=== PATIENT | female | born 1955 | race Caucasian/White ===

== ENCOUNTER 2017-09-19 22:19 | Emergency (ER) | payer OTHER ==
[~2017-09-19] VITALS: Ht 154.9 cm; Wt 56.0 kg
[~2017-09-19 22:19] MED LIST: ASTN; BIOT1CAP3 PO; DEXT10CA PO; ESTR0.05 TOP; IPRA0.037 NAE; LEVO75TA PO; LIDO1OIN4 EX; MORP15TA PO; POLY1POW2 PO; PTDOPS OPB; SODI500S PO; TEMA30CA4 PO; [UNRECOGNIZED DRUG - CODE] EXT; [UNRECOGNIZED DRUG - CODE] PO
[2017-09-19 22:21] VITALS: TEMP 36.7; Ht 154.9 cm; Wt 56.0 kg
[2017-09-19 23:04] VITALS: O2SAT 97
--- NOTE | 2017-09-19 23:05 | DIAGNOSTIC IMAGING REPORT ---
CHEST ONE VIEW PORTABLE CLINICAL HISTORY: 62 years-old Female presenting with CHEST PAIN. TECHNIQUE: Portable upright AP view of the chest was obtained. COMPARISON: 03/23/2012. FINDINGS: Atherosclerosis of the aortic arch. Cardiac silhouette normal in size. No focal opacity. No large effusion or pneumothorax. Osseous structures normal. Upper abdomen normal. IMPRESSION: 1. No acute cardiopulmonary disease. Electronically signed by: Tomasz Bridges M.D. 09/19/2017 11:04 PM Dictated Date/Time: 09/19/2017 11:03 PM
[2017-09-19 23:41] LABS: BASO % 0.2 %; BASO ABS # 0.01 K/uL (0-0.2); EOS % 0.8 %; EOS ABS # 0.04 K/uL (0-0.5); HEMATOCRIT 44.6 % (37-47); HEMOGLOBIN 15.4 g/dL (12.0-16.0); IG# 0.01 K/uL (0.00-0.02); LYMPH ABS # 1.27 K/uL (1.2-3.4); MEAN CELL VOLUME 86.3 fL (80-100); MEAN CORPUSCULAR HEMOGLOBIN 29.8 pg (25-34); MEAN CORPUSCULAR HGB CONC 34.5 g/dl (32-36); MEAN PLATELET VOLUME 10.5 fL (7.4-10.4); MONO % 9.2 %; MONO ABS # 0.47 K/uL (0.11-0.59); NEUT % 64.6 %; NEUT ABS # 3.29 K/uL (1.4-6.5); PLATELET COUNT 197 K/uL (130-400); RED CELL DISTRIBUTION WIDTH CV 12.7 % (11.5-14.5); RED CELL DISTRIBUTION WIDTH SD 40.5 fL (36.4-46.3); WHITE BLOOD COUNT 5.09 K/uL (4.8-10.8)
[2017-09-19 23:59] LABS: ALBUMIN 3.7 gm/dl (3.4-5.0); ALT/SGPT 28 U/L (12-78); AST/SGOT 19 U/L (15-37); BLOOD UREA NITROGEN 22 mg/dl (7-18); CALCIUM 8.4 mg/dl (8.5-10.1); CARBON DIOXIDE 32 mmol/L (21-32); CREATININE 0.97 mg/dl (0.60-1.20); GLUCOSE 91 mg/dl (70-99); POTASSIUM 4.1 mmol/L (3.5-5.1); SODIUM 138 mmol/L (136-145)
[2017-09-20 00:04] LABS: ALKALINE PHOSPHATASE 93 U/L (45-117); TOTAL PROTEIN 8.3 gm/dl (6.4-8.2)
[2017-09-20] MEDS ORDERED: ESTR0.05 TOP (02:43)
--- NOTE | 2017-09-20 02:53 | EMERGENCY ROOM VISIT NOTE ---
History First contact with patient: 22:25 Chief Complaint: ARM PAIN Stated Complaint: LEFT ARM/SHOULDER/BACK P,NAUSEA,SWEATS History of Present Illness The patient is a 62 year old female who presents to the Emergency Room with complaints of nausea, diaphoresis, left shoulder neck and arm pain for the past 2 hours that started while talking on the phone to her son. Symptoms started at 8 PM. She describes the pain as discomfort, ranging in severity 5 out of 10 from the left shoulder to the left elbow region. Nothing makes it better or worse. Patient took a full aspirin and felt slightly better. There was no injury. Patient is not lifting anything heavy. No prior heart attack. No recent stress test or echo. She seen Dr. Stein in the past but this is greater than 4 years ago. Patient denies exertional chest pain, jaw pain, dyspnea, abdominal pain, leg pain or swelling, recent travel, tobacco use. Her father of a heart attack at age 79. Patient denies blood pressure or diabetes. No drug use. Review of Systems An 10 system review of systems was completed with positives and pertinent negatives listed in the HPI. Past Medical/Surgical History Cholecystectomy, hyperlipidemia, hysterectomy, Lyme disease, stroke without deficits, MGUS, chronic kidney disease stage III, narcolepsy, osteoporosis, back pain, heart failure Social History Smoking Status: Never Smoker Smokeless Tobacco Use: No Alcohol Use: none Drug Use: none Marital Status: Occupation Status: retired Current/Historical Medications Scheduled Biotin (Biotin), 3 CAP PO QAM Dextroamphetamine Sulfate (Dexedrine), 10 MG PO TID Estradiol (Vivelle-Dot), 1 PATCH TOP 2XWK Levothyroxine Sodium (Synthroid), 75 MCG PO QAM Methamphetamine Hcl (Desoxyn), 15 MG PO TID Morphine Sulfate (Morphine Sulfate Ir), 1 TAB PO BID Sodium Oxybate (Xyrem), 9 GM PO HS Physical Exam Vital Signs Date Time Temp Pulse Resp B/P (MAP) Pulse Ox O2 Delivery O2 Flow Rate FiO2 09/20/17 01:00 76 20 114/73 97 Room Air 09/20/17 00:45 72 12 09/20/17 00:15 78 19 09/19/17 23:45 79 14 09/19/17 23:22 77 09/19/17 23:15 80 23 100 Room Air 09/19/17 23:04 97 Room Air 09/19/17 23:04 97 Room Air 09/19/17 22:51 122/70 09/19/17 22:21 36.7 18 141/83 Room Air Physical Exam VITALS: Vitals are noted on the nurse's note and reviewed by myself. Vital signs stable. GENERAL: Pleasant female, in no acute distress, nondiaphoretic, well-developed well-nourished. SKIN: The skin was without rashes, erythema, edema, or bruising. There is no tenting of the skin. Capillary reflex less than 2 seconds. HEAD: Normocephalic atraumatic. EARS: External auditory canals clear, tympanic membranes pearly moe without erythema or effusion bilaterally. EYES: Pupils equal round and reactive to light and accommodation. Conjunctivae without injection, sclerae without icterus. Extraocular movements intact. NOSE: Patent, turbinates without inflammation or discharge. MOUTH: Mucous membranes moist. Pharynx without erythema or exudate. Uvula midline. Airway patent. Tongue does not deviate. NECK: Supple without nuchal rigidity. No lymphadenopathy. No thyromegaly. Cervical spine is nontender. No JVD. HEART: Regular rate and rhythm without murmurs gallops or rubs. LUNGS: Clear to auscultation bilaterally without wheezes, rales or rhonchi. No retractions or accessory muscle use. ABDOMEN: Positive bowel sounds x 4. Normal tympanic percussion. Soft, nontender, without masses or organomegaly. Sawyer sign negative. No guarding or rebound tenderness. No CVA tenderness MUSCULOSKELETAL: No muscle atrophy, erythema, or edema noted. Bilateral shoulders nontender to palpation with full range of motion unable to reproduce symptoms. No C-spine tenderness. No thoracic tenderness. No lumbar tenderness. NEURO: Patient was alert and oriented to person place and time. Normal sensation to light and sharp touch. No focal neurological deficits. Medical Decision & Procedures Laboratory Results 09/19/17 23:33 Red Blood Count 5.17, Mean Corpuscular Volume 86.3, Mean Corpuscular Hemoglobin 29.8, Mean Corpuscular Hemoglobin Concent 34.5, Mean Platelet Volume 10.5, Neutrophils (%) (Auto) 64.6, Lymphocytes (%) (Auto) 25.0, Monocytes (%) (Auto) 9.2, Eosinophils (%) (Auto) 0.8, Basophils (%) (Auto) 0.2, Neutrophils # (Auto) 3.29, Lymphocytes # (Auto) 1.27, Monocytes # (Auto) 0.47, Eosinophils # (Auto) 0.04, Basophils # (Auto) 0.01 09/19/17 23:33 Test 09/19/17 23:33 09/20/17 02:20 White Blood Count 5.09 K/uL (4.8-10.8) Red Blood Count 5.17 M/uL (4.2-5.4) Hemoglobin 15.4 g/dL (12.0-16.0) Hematocrit 44.6 % (37-47) Mean Corpuscular Volume 86.3 fL (80-100) Mean Corpuscular Hemoglobin 29.8 pg (25-34) Mean Corpuscular Hemoglobin Concent 34.5 g/dl (32-36) Platelet Count 197 K/uL (130-400) Mean Platelet Volume 10.5 fL (7.4-10.4) Neutrophils (%) (Auto) 64.6 % Lymphocytes (%) (Auto) 25.0 % Monocytes (%) (Auto) 9.2 % Eosinophils (%) (Auto) 0.8 % Basophils (%) (Auto) 0.2 % Neutrophils # (Auto) 3.29 K/uL (1.4-6.5) Lymphocytes # (Auto) 1.27 K/uL (1.2-3.4) Monocytes # (Auto) 0.47 K/uL (0.11-0.59) Eosinophils # (Auto) 0.04 K/uL (0-0.5) Basophils # (Auto) 0.01 K/uL (0-0.2) RDW Standard Deviation 40.5 fL (36.4-46.3) RDW Coefficient of Variation 12.7 % (11.5-14.5) Immature Granulocyte % (Auto) 0.2 % Immature Granulocyte # (Auto) 0.01 K/uL (0.00-0.02) Anion Gap 3.0 mmol/L (3-11) Est Creatinine Clear Calc Drug Dose 44.2 ml/min Estimated GFR () 71.5 Estimated GFR (Non- 61.7 BUN/Creatinine Ratio 22.5 (10-20) Calcium Level 8.4 mg/dl (8.5-10.1) Magnesium Level 2.2 mg/dl (1.8-2.4) Total Bilirubin 0.7 mg/dl (0.2-1) Direct Bilirubin 0.2 mg/dl (0-0.2) Aspartate Amino Transf (AST/SGOT) 19 U/L (15-37) Alanine Aminotransferase (ALT/SGPT) 28 U/L (12-78) Alkaline Phosphatase 93 U/L (45-117) Total Creatine Kinase 135 U/L (26-192) Total Protein 8.3 gm/dl (6.4-8.2) Albumin 3.7 gm/dl (3.4-5.0) Troponin I < 0.015 ng/ml (0-0.045) ED Course Prior records/ancillary studies reviewed. Triage Nursing notes reviewed. Additional history obtained from The patient's history was concerning for left shoulder/arm pain with nausea and diaphoresis Differential diagnosis: Etiologies such as muscle skeletal, cervical radiculopathy, cardiac ischemia, aortic dissection, pulmonary embolism, pneumonia, pneumothorax, musculoskeletal , infections, pericarditis, myocarditis, esophageal rupture, gastrointestinal, as well as others were entertained. Physical examination: As above. ER treatment provided: Patient refused nitroglycerin. She already took an aspirin On reassessment the patient felt better. Diagnostic interpretation by me: The electrocardiogram was normal sinus, normal intervals, no acute ST-T wave changes, left axis deviation, rate of 80. Impression normal sinus rhythm interpreted by myself. Repeat EKG is unchanged 30 minutes later. The labs revealed negative troponin 2 greater than 2 hours apart. Stable H&H. Imaging studies: Chest x-ray as above CHEST ONE VIEW PORTABLE CLINICAL HISTORY: 62 years-old Female presenting with CHEST PAIN. TECHNIQUE: Portable upright AP view of the chest was obtained. COMPARISON: 03/23/2012. FINDINGS: Atherosclerosis of the aortic arch. Cardiac silhouette normal in size. No focal opacity. No large effusion or pneumothorax. Osseous structures normal. Upper abdomen normal. IMPRESSION: 1. No acute cardiopulmonary disease. Electronically signed by: Tomasz Bridges M.D. HEART SCORE: Hx: high/mod/low suspicion: 1 ECG: ST depression/nonspecific changes/normal: 0 Age: Greater than 65/45-64/less than 45: 1 Risk factors: (Hypertension, hyperlipidemia, diabetes, coronary disease, tobacco use, cocaine use): 1 Troponin: Greater than 2 times normal limits/1-2 times normal limits/normal: 0 Total: 3 Exam and history seem consistent with left shoulder arm pain that could be cardiac in etiology. Patient refused admission. She did have 2 negative troponins. 2 repeat EKGs were unchanged. Patient was neurovascularly and neurologically intact. She has a roll wrapper. She is advised to get outpatient stress test and echo this week and to call this morning to make a follow-up appointment for outpatient testing as patient refused to stay for inpatient testing. Patient's heart score is 3. She had 2 negative troponins greater than 2 hours apart. An unchanged EKG. Patient was informed of the risks involved such as having a heart attack but understands the risks and wants to do outpatient testing. Using shared decision making process, the patient has opted to be discharged home for outpatient testing. She understands the risks involved such as heart attack and/or . was present for this conversation. By the evaluation outlined above emergent etiologies such as aortic dissection, pulmonary embolism, pneumonia, pneumothorax, infections, pericarditis, myocarditis, gastrointestinal, as well as others were deemed relatively unlikely. The pt informed about the findings as listed above. All questions were answered and pleased with the treatment. Return instructions were outlined and the patient was discharged in stable condition. Referral: The patient was referred back to her roll wrapper and primary care physician for follow-up in 2 to 3 days for a recheck of the current condition. Case reviewed with my attending The chart was completed utilizing [employer] Speech voice recognition software. Grammatical errors, random word insertions, pronoun errors, and incomplete sentences are an occassional consequence of this system due to software limitations, ambient noise, and hardware issues. Any formal questions or concerns about the content, text, or information contained within the body of this dictation should be directly addressed to the physician email marketing assistant for clarification. Medical Decision As above Medication Reconcilliation Current Medication List: was personally reviewed by me Blood Pressure Screening Patient's blood pressure: Normal blood pressure Impression Primary Impression: Arm pain, left Additional Impressions: Diaphoresis Nausea Departure Information Dispostion Home / Self-Care Condition GOOD Referrals Edwardo Rubi M.D. (MEDICAL) (PCP) Patient Instructions My [facility] Additional Instructions Acetaminophen(Tylenol) may be used for fever or pain. Use 1000mg every six hours as needed. Avoid using more than 3000mg in a 24 hour period. Rest and drink plenty of fluids as tolerated. Continue current medications. Avoid strenuous activities and anything that worsens your pain. No strenuous activity until cleared by the roll wrapper. Return to the ER immediately for worsening or persistent chest pain, abdominal pain, vomiting, fevers, chest pains, difficulty breathing, worsening of your condition, or as needed. Follow up with your primary physician in 2-3 days for a recheck of your current condition. I recommend that you get a stress test and echo within the week with cardiology. Call your roll wrapper this morning at 8 AM for follow-up. Problem Qualifiers
[2017-09-20 02:59] VITALS: BP 128/71; PULSE 72; O2SAT 97
== END 2017-09-20 03:00 | disposition home or self-care (01) ==
LOC: C.EDB 22:19
DX: M79.602 Pain in left arm (principal); R61 Generalized hyperhidrosis; R11.0 Nausea; M25.512 Pain in left shoulder; M54.2 Cervicalgia; N18.3 Chronic kidney disease, stage 3 (moderate); I50.9 Heart failure, unspecified; M54.9 Dorsalgia, unspecified; Z82.49 Family history of ischemic heart disease and other diseases of the circulatory system; Z79.899 Other long term (current) drug therapy

== ENCOUNTER 2022-08-31 23:29 | Observation (INO) ==
--- NOTE | 2022-09-01 | Emergency Department Note ---
History of Present Illness General Chief complaint: Chest Pain Stated complaint: CHEST PAIN,NUMBNESS L ARM, Time Seen by Provider: 08/31/22 23:42 History of Present Illness Maximum Pain Intensity: 5 67-year-old female with a 2-week history of intermittent chest pain palpitations and left arm numbness. Patient states that she just stopped and analysis with a Holter monitor this week and sent the monitor back to the company. Patient states that it was on for the past 2 weeks due to palpitations and chest pain. Patient states since removal of the Holter monitor she has had increased substernal chest pressure with some numbness to the left arm. Patient also states that she is on various medications that have caused her feet to turn blue and this is normal for her. Patient denies any abdominal pain nausea vomiting diaphoresis denies neck pain jaw pain back pain. There are no other mitigating or alleviating factors. Patient states that she has not taken aspirin as she has had a prior history of gastric ulcer Home Medications Medication Instructions Recorded Confirmed Type dextroamphetamine sulfate 10 mg 20 mg PO TID 11/10/18 08/31/22 History capsule,extended release fluticasone propionate 50 1 spray intranasal DAILY PRN as 11/10/18 09/01/22 History mcg/actuation nasal directed spray,suspension (Flonase Allergy Relief) ipratropium bromide 21 mcg (0.03 2 spray intranasal DAILY PRN as 11/10/18 09/01/22 History %) nasal spray directed ketoconazole 2 % shampoo 2 % topical .EVERY 3 DAYS 11/10/18 09/01/22 History ketoconazole 2 % topical cream 1 applic topical DAILY 11/10/18 09/01/22 History morphine 15 mg tablet,extended 15 mg PO BID 11/10/18 09/01/22 History release olopatadine 0.2 % eye drops 1 drp OPB DAILY PRN NEEDED 11/10/18 09/01/22 History polyethylene glycol 3350 17 17 g PO DAILY PRN Constipation 11/10/18 09/01/22 History gram/dose oral powder (Miralax) estradiol 0.0375 mg/24 hr 1 patch transdermal 2XWK #24 ea 08/15/22 08/31/22 Rx semiweekly transdermal patch amlodipine 2.5 mg tablet 2.5 mg PO QAM 08/31/22 08/31/22 History levothyroxine 75 mcg tablet 75 mcg PO DAILYBB 08/31/22 08/31/22 History clobetasol 0.05 % scalp solution 1 applic topical HS PRN scalp 09/01/22 09/01/22 History scaling and itching estradiol 0.0375 mg/24 hr 1 patch transdermal 2XWK 09/01/22 09/01/22 History semiweekly transdermal patch Allergies Allergy/AdvReac Type Severity Reaction Status Date / Time clindamycin Allergy Severe BLISTERS Verified 09/01/22 00:11 IN MOUTH, THROAT CLOSED NSAIDS (Non-Steroidal Allergy Severe TROUBLE Verified 09/01/22 00:11 Anti-Inflamma BREATHING, MOUTH SWELLING Penicillins Allergy Severe HIVES, Verified 09/01/22 00:11 TONGUE SWELLS, BLISTERS ON TONGUE & VAGINA Sulfa (Sulfonamide Allergy Severe HIVES, Verified 09/01/22 00:11 Antibiotics) TONGUE SWELLS, BLISTERS ON TONGUE & VAGINA Cipro Allergy Intermediate MUSCLE Verified 03/18/15 22:22 PROBLEMS, MOUTH SORES ciprofloxacin Allergy Intermediate MUSCLE Verified 09/01/22 00:11 PROBLEMS, MOUTH SORES doxycycline Allergy Intermediate Vomiting Verified 09/01/22 00:11 levofloxacin Allergy Intermediate MUSCLE Verified 09/01/22 00:11 PROBLEMS aspirin Allergy Unknown HX OF Verified 09/01/22 00:11 BLEEDING ULCERS Past Med/Surg History Medical History Congestive heart failure (CHF) Hypercholesterolemia Hypothyroidism Menopause Monoclonal gammopathy of undetermined significance Multiple myeloma Narcolepsy Osteoporosis Postmenopausal hormone replacement therapy Surgical History H/O abdominoplasty H/O dilation and curettage x5 H/O laparoscopy one with removal of right tube and ovary H/O: hysterectomy left tube and ovary , adhesiolysis, age 33, endometriosis History of tonsillectomy and adenoidectomy Hx of appendectomy Family History Father Myocardial infarction Grandmother (Paternal) Ovarian cancer Denies family history of Prostate cancer Breast cancer Colorectal cancer Social History Smoking Status: Never smoker Preferred Language: Romanian Feels Safe at Home: Yes Review of Systems A total of 10 systems reviewed and were otherwise negative Respiratory: no cough Cardiovascular: + chest pain Hematologic / Lymphatic: no easy bleeding and no coagulopathy Physical Exam Vital Signs Vital Signs - 24 hr 08/31/22 23:34 08/31/22 23:43 08/31/22 23:59 Temperature 36.5 C Temperature Source Temporal Artery Scan Pulse Rate 100 H 76 84 Pulse Rate from SpO2 Sensor Pulse Rhythm Regular Respiratory Rate 18 18 Respiratory Effort / Characteristics Non-Labored Spontaneous Respiratory Depth Normal Respiratory Pattern Regular Blood Pressure 144/90 H Blood Pressure Mean 108 Blood Pressure Position Sitting Pulse Oximetry 99 97 Oxygen Delivery Method Room Air Room Air Sepsis Recent Fever Within 48 Hours No Sepsis New/Unexplained Change in Mental Status N/A Sepsis Action Taken by Nursing No Action Required 09/01/22 00:00 09/01/22 00:09 09/01/22 00:09 Temperature Temperature Source Pulse Rate 97 H 83 Pulse Rate from SpO2 Sensor 81 Pulse Rhythm Respiratory Rate 13 14 Respiratory Effort / Characteristics Respiratory Depth Respiratory Pattern Blood Pressure 134/85 Blood Pressure Mean 101 Blood Pressure Position Pulse Oximetry 98 Oxygen Delivery Method Sepsis Recent Fever Within 48 Hours Sepsis New/Unexplained Change in Mental Status Sepsis Action Taken by Nursing 09/01/22 00:30 09/01/22 01:00 09/01/22 01:30 Temperature Temperature Source Pulse Rate 78 75 76 Pulse Rate from SpO2 Sensor 86 81 80 Pulse Rhythm Respiratory Rate 12 12 15 Respiratory Effort / Characteristics Respiratory Depth Respiratory Pattern Blood Pressure Blood Pressure Mean Blood Pressure Position Pulse Oximetry 98 97 97 Oxygen Delivery Method Sepsis Recent Fever Within 48 Hours Sepsis New/Unexplained Change in Mental Status Sepsis Action Taken by Nursing GENERAL: Patient is awake alert in no acute distress patient is resting comfortably and showing no signs of anxiety EYES: The conjunctivae are clear. The pupils are round and reactive. EARS, NOSE, MOUTH AND THROAT: The nose is without any evidence of any deformity. Mucous membranes are moist. Tongue is midline. NECK: The neck is nontender and supple. RESPIRATORY: Normal respiratory effort is noted there is no evidence of wheezing rhonchi or rales CARDIOVASCULAR: Regular rate and rhythm noted there no murmurs rubs or gallops normal S1 normal S2. GASTROINTESTINAL: The abdomen is soft. Abdomen is nontender. BACK: No midline tenderness or or step-off noted range of motion in flexion extension as well as rotation no signs of muscle spasm noted MUSCULOSKELETAL/EXTREMITIES: There is no evidence of gross deformity full range of motion is noted in the hips and shoulders. SKIN: There is no obvious evidence of any rash. Cyanosis to bilateral feet; normal sensation; patient's feet are warm patient has pulses in the DP pulses NEUROLOGIC: Patient is awake alert and oriented x3 strength is symmetric Course Reevaluation(s) Reevaluation #1: Patient is resting in no distress on repeat examination. No current chest pain. Time: :43 Consultations Consultation #1: [facility] Time: :43 Medical Decision Making Medical Records Attestation: I reviewed the patient's medical records. Home Medications Current Medication List: was personally reviewed by me Laboratory Data Attestation: I reviewed the patient's lab results. Labs interpreted by me unremarkable 08/31/22 23:54 08/31/22 23:54 Lab Results 08/31/22 08/31/22 08/31/22 Range/Units 23:54 23:54 23:54 WBC 7.47 (4.8-10.8) K/ul RBC 5.39 (4.20-5.40) M/uL Hgb 15.9 (12.0-16.0) g/dl Hct 47.1 H (37.0-47.0) % MCV 87.4 (80.0-100.0) fL MCH 29.5 (25.0-34.0) pg MCHC 33.8 (32.0-36.0) g/dL RDW Std Deviation 42.1 (36.4-46.3) fL RDW Coeff of Jorge Luis 13.2 (11.5-14.5) % Plt Count 244 (130-400) K/uL MPV 11.0 (9.4-12.4) fL Immature Gran % (Auto) 0.4 % Neut % (Auto) 67.6 % Lymph % (Auto) 23.7 % [place] % (Auto) 7.0 % Eos % (Auto) 0.8 % Baso % (Auto) 0.5 % Neut # (Auto) 5.05 (1.40-6.50) K/uL Lymph # (Auto) 1.77 (1.2-3.4) K/uL [place] # (Auto) 0.52 (0.11-0.59) K/uL Eos # (Auto) 0.06 (0-0.50) K/uL Baso # (Auto) 0.04 (0-0.2) K/uL Immature Gran # (Auto) 0.03 (0.01-0.20) K/uL PT 10.6 (9.0-12.0) Seconds INR 1.0 (0.9-1.1) APTT 23.3 (21.0-31.0) Seconds PTT Ratio 0.8 Sodium 137 (136-145) mmol/L Potassium 5.1 (3.5-5.1) mmol/L Chloride 105 (98-107) mmol/L Carbon Dioxide 26 (21-32) mmol/L Anion Gap 6 (3-11) BUN 28 H (6-23) mg/dl Creatinine 1.15 (0.6-1.2) mg/dl Est Cr Clr Drug Dosing 38.9 ml/min Est GFR ( Amer) 56.2 ml/min Est GFR (Non-Af Amer) 48.5 ml/min BUN/Creatinine Ratio 24.3 H (10-20) Glucose 103 H (70-99(Fasting)) mg/dl Calcium 9.1 (8.6-10.3) mg/dl Total Bilirubin 0.5 (0.2-1.0) mg/dl AST 21 (13-39) U/L ALT 14 (7-52) U/L Alkaline Phosphatase 74 (34-104) U/L Troponin I High Sens 5.3 (0-14) pg/ml Total Protein 8.3 (6.0-8.3) gm/dl Albumin 4.2 (3.4-5.0) gm/dl Globulin 4.1 H (2.5-4.0) gm/dl Albumin/Globulin Ratio 1.0 (0.9-2) Imaging Data Attestation: I personally reviewed and interpreted this imaging study as follows: My Impression: Chest x-ray interpreted by me negative for infiltrate normal mediastinum ECG Data Attestation: I personally reviewed and interpreted this ECG as follows: Additional Comments: EKG interpreted by me normal sinus rhythm rate of 88 left axis deviation no obvious ST segment elevation or depression normal intervals Telemetry was ordered by me, interpreted by me as normal sinus rhythm rate of 88 MDM Narrative Medical decision making differential diagnosis includes angina, unstable angina, acute coronary syndrome, acute [place], musculoskeletal chest pain, palpitations, anxiety, cardiac dysrhythmia Plan is to check labs, EKG, chest x-ray Patient's prior medical records were reviewed by me Patient's heart score is a 4 Patient is not actively having any chest pain. I do not suspect pulmonary embolism or thoracic aortic dissection this presentation this evening [facility] Impression & Plan Chest pain Discharge Plan Visit Data Chief Complaint: Chest Pain Stated Complaint: CHEST PAIN,NUMBNESS L ARM, ED Provider: Shaun Powell Discharge Problem: Chest pain Patient Disposition: Admitted As Inpatient Forms Stand Alone Forms: [facility] Prescriptions Prescriptions: No Action estradiol 0.0375 mg/24 hr patch semiweekly 1 patch transdermal 2XWK Qty: 24 0RF ketoconazole 2 % Shampoo 2 % TOPICAL .EVERY 3 DAYS Rx Instructions: APPLY TO AFFECTED AREA. dextroamphetamine sulfate 10 mg Capsule, Extended Release 20 mg PO TID morphine 15 mg Tablet Extended Release 15 mg PO BID Rx Instructions: give 30 minutes before morning and evening meal polyethylene glycol 3350 [Miralax] 17 gram/dose Powder 17 g PO DAILY PRN (Reason: Constipation) ketoconazole 2 % Cream 1 applic TOPICAL DAILY Rx Instructions: APPLY TO AFFECTED AREA. fluticasone propionate [Flonase Allergy Relief] 50 mcg/actuation Spr ay,Suspension 1 spray INTRANASAL DAILY PRN (Reason: as directed) ipratropium bromide 0.03 % [place],Non-Aerosol 2 spray INTRANASAL DAILY PRN (Reason: as directed) olopatadine 0.2 % Drops 1 drp OPB DAILY PRN (Reason: NEEDED) amlodipine 2.5 mg tablet 2.5 mg PO QAM levothyroxine 75 mcg tablet 75 mcg PO DAILYBB clobetasol 0.05 % solution 1 applic TOPICAL HS PRN (Reason: scalp scaling and itching) estradiol 0.0375 mg/24 hr patch semiweekly 1 patch transdermal 2XWK Referrals Referrals: Mohit Jaquez MD [Primary Care Provider] -
[2022-09-01 00:21] LABS: Basophils # (auto) 0.04 K/uL (0-0.2); Basophils % (auto) 0.5 %; Eosinophils # (auto) 0.06 K/uL (0-0.50); Eosinophils % (auto) 0.8 %; Hematocrit (blood only) 47.1 % (37.0-47.0); Hemoglobin 15.9 g/dl (12.0-16.0); Immature Granulocytes # (auto) 0.03 K/uL (0.01-0.20); Immature Granulocytes % (auto) 0.4 %; Lymphocytes # (auto) 1.77 K/uL (1.2-3.4); Lymphocytes % (auto) 23.7 %; Mean Corpuscular Hemoglobin 29.5 pg (25.0-34.0); Mean Corpuscular Hgb Conc 33.8 g/dL (32.0-36.0); Mean Corpuscular Volume 87.4 fL (80.0-100.0); Monocytes # (auto) 0.52 K/uL (0.11-0.59); Neutrophils # (auto) 5.05 K/uL (1.40-6.50); Neutrophils % (auto) 67.6 %; Platelet Count 244 K/uL (130-400); RDW Coefficient of Variation 13.2 % (11.5-14.5); RDW Standard Deviation 42.1 fL (36.4-46.3); Red Blood Count 5.39 M/uL (4.20-5.40); White Blood Count 7.47 K/ul (4.8-10.8)
[2022-09-01 00:32] LABS: Partial Thromboplastin Ratio 0.8; Partial Thromboplastin Time 23.3 Seconds (21.0-31.0); Prothrombin Time 10.6 Seconds (9.0-12.0)
[2022-09-01 01:07] LABS: Albumin Level 4.2 gm/dl (3.4-5.0); BUN Creatinine Ratio 24.3 (10-20); Bilirubin,Total 0.5 mg/dl (0.2-1.0); Calcium 9.1 mg/dl (8.6-10.3); Creatinine Clr Calc Pharmacy 38.9 ml/min; Est GFR (African American) 56.2 ml/min; Est GFR (Non-African American) 48.5 ml/min; Globulin 4.1 gm/dl (2.5-4.0); Potassium 5.1 mmol/L (3.5-5.1); Total Protein 8.3 gm/dl (6.0-8.3)
[2022-09-01 01:14] LABS: Troponin I High Sensitivity 5.3 pg/ml (0-14)
[2022-09-01] MEDS ORDERED: SODIUM CHLORIDE 0.9% 1000ML 1,000 ML IV ONE (01:32)
[2022-09-01 01:50] LABS: Magnesium 2.3 mg/dl (1.7-2.4)
--- NOTE | 2022-09-01 02:14 | History & Physical Report ---
Date of Service September 01, 2022 Assessment & Plan (1) Chest pain: Plan: With abnormal D-dimer Rule out PE Left-sided numbness and tingling a few months duration rule out recurrent CVA, hx CVA hyperlipidemia, patient hesitant to start statin Rx following recent abnormal outpatient labs hx narcolepsy/cataplexy, currently on Xywav, suboptimal after patient tapered off dextroamphetamine Rx given concerns for vasospastic side effects chronic pain on narcotics hypothyroidism, euthyroid as of today's TSH hx MGUS, stable history of Lyme disease status post Rx. OBS PCU CT chest PE study Cardiology consult if PE work-up unremarkable for evaluation of chest pain rule out ischemia given patient risk factors N.p.o. in anticipation of procedure MRI/MRA brain Re: Left-sided numbness and tingling, intermittent symptoms Additional stroke work-up pending MRI results Patient agreeable to aspirin for CAD/stroke prevention if warranted. Outpatient follow-up with Sleep Medicine for narcolepsy/cataplexy. (Patient requested to message outpatient provider that she had tapered off dextroamphetamine Rx on her own.) DVT prophylaxis. Lovenox subcu Full code Patient requesting updates providers. Mr. Wilbur Villafuerte, contact number [phone]. Text document was generated using [employer] voice recognition software. It may contain grammatical or spelling errors. Kindly contact undersigned for clarification of any documentation item in ques tion. History of Present Illness Chief Complaint: Chest pain Primary Care Provider: Mohit Jaquez MD History obtained from patient, family, and records. Medical history significant for CVA, hyperlipidemia, vasospastic disorder as per records, narcolepsy/cataplexy currently on Xywav, chronic pain on narcotics, hypothyroidism, MGUS, history of Lyme disease status post Rx. 4 months ago, patient noted intermittent left-sided chest pain occurring about 3 times a week without other symptoms. A month later, chest pain symptoms accompanied by palpitations, paresthesias and numbness of the left upper extremity and left lower leg with episodic blue discoloration of the toes. No actual extremity pain. No headache or neck complaints. 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 Consideration for vasospastic disorder given abnormal photoplethysmography values noted both lower extremities from prior vascular lab study. Low-dose amlodipine and possible vascular surgery evaluation contemplated for vasospastic disorder pending discussion with PCP as per outpatient documentation. 2-week Zio patch for palpitations. Outpatient MRI of the brain recommended for evaluation of strokelike symptoms. Patient imaging engineer and PCP attributed patient's acrocyanosis to peripheral vasospasm to patient's Dexedrine Rx for narcolepsy. Patient preferred to trial off Dexedrine then to start amlodipine Rx. Improved vasospasm noted with patient's Dexedrine taper. Narcolepsy/catalepsy however worse as per patient. This week, patient noted increased frequency of left-sided chest pain associated with left-sided palpitations/numbness. No shortness of breath, no headaches. Patient brought to ER for evaluation. Patient currently comfortable. Medical History as above Outpatient fasting lipid panel (08/2022) Serum triglycerides 147 Total cholesterol 263 HDL cholesterol 59 LDL cholesterol 175 Surgical History : section, cholecystectomy, appendectomy, ble pharoplasty, abdominoplasty, MIRTHA, breast biopsy, section Family History : Mouth cancer, DM, heart disease, lung cancer, uterine cancer Personal/Social history : Non-smoker, no EtOH intake, disabled Allergies Allergy/AdvReac Type Severity Reaction Status Date / Time clindamycin Allergy Severe BLISTERS Verified 09/01/22 00:11 IN MOUTH, THROAT CLOSED NSAIDS (Non-Steroidal Allergy Severe TROUBLE Verified 09/01/22 00:11 Anti-Inflamma BREATHING, MOUTH SWELLING Penicillins Allergy Severe HIVES, Verified 09/01/22 00:11 TONGUE SWELLS, BLISTERS ON TONGUE & VAGINA Sulfa (Sulfonamide Allergy Severe HIVES, Verified 09/01/22 00:11 Antibiotics) TONGUE SWELLS, BLISTERS ON TONGUE & VAGINA Cipro Allergy Intermediate MUSCLE Verified 03/18/15 22:22 PROBLEMS, MOUTH SORES ciprofloxacin Allergy Intermediate MUSCLE Verified 09/01/22 00:11 PROBLEMS, MOUTH SORES doxycycline Allergy Intermediate Vomiting Verified 09/01/22 00:11 levofloxacin Allergy Intermediate MUSCLE Verified 09/01/22 00:11 PROBLEMS aspirin Allergy Unknown HX OF Verified 09/01/22 00:11 BLEEDING ULCERS Home Medications Medication Instructions Recorded Confirmed Type fluticasone propionate 50 1 spray intranasal DAILY PRN as 11/10/18 09/01/22 History mcg/actuation nasal directed spray,suspension (Flonase Allergy Relief) ipratropium bromide 21 mcg (0.03 2 spray intranasal DAILY PRN as 11/10/18 09/01/22 History %) nasal spray directed ketoconazole 2 % shampoo 2 % topical .EVERY 3 DAYS 11/10/18 09/01/22 History ketoconazole 2 % topical cream 1 applic topical DAILY 11/10/18 09/01/22 History morphine 15 mg tablet,extended 15 mg PO BID 11/10/18 09/01/22 History release olopatadine 0.2 % eye drops 1 drp OPB DAILY PRN NEEDED 11/10/18 09/01/22 History polyethylene glycol 3350 17 17 g PO DAILY PRN Constipation 11/10/18 09/01/22 History gram/dose oral powder (Miralax) estradiol 0.0375 mg/24 hr 1 patch transdermal 2XWK #24 ea 08/15/22 08/31/22 Rx semiweekly transdermal patch amlodipine 2.5 mg tablet 2.5 mg PO QAM 08/31/22 08/31/22 History levothyroxine 75 mcg tablet 75 mcg PO HS 08/31/22 09/01/22 History clobetasol 0.05 % scalp solution 1 applic topical HS PRN scalp 09/01/22 09/01/22 History scaling and itching estradiol 0.0375 mg/24 hr 1 patch transdermal 2XWK 09/01/22 09/01/22 History semiweekly transdermal patch Past Med/Surg History Medical History Congestive heart failure (CHF) Hypercholesterolemia Hypothyroidism Menopause Monoclonal gammopathy of undetermined significance Multiple myeloma Narcolepsy Osteoporosis Postmenopausal hormone replacement therapy Surgical History H/O abdominoplasty H/O dilation and curettage x5 H/O laparoscopy one with removal of right tube and ovary H/O: hysterectomy left tube and ovary , adhesiolysis, age 33, endometriosis History of tonsillectomy and adenoidectomy Hx of appendectomy Family History Father Myocardial infarction Grandmother (Paternal) Ovarian cancer Denies family history of Prostate cancer Breast cancer Colorectal cancer Social History Smoking Status: Never smoker Second Hand Exposure: No; Do You Dip or Chew Tobacco: No; Tobacco Cessation Education Requested by Patient: No Hx Alcohol Use: No Hx Substance Use: No Preferred Language: Kiswahili Communication Ability: Effective Assessment Nurse Practitioner Required: No Beliefs That Will Affect Care: None Current Living Situation: Spouse Other Information That Helps Us Care for You: No Feels Safe at Home: Yes Safety Concerns: Feels Safe At This Time Assistive Devices: Cane, Glasses, Walker and Wheelchair Review of Systems Review of Systems: As per HPI, all other systems reviewed and negative Physical Exam Physical Exam: GENERAL: Comfortable, pleasant, no respiratory distress SKIN: Normal color, warm HEENT: Bespectacled, pink palpebral conjunctivae, no ptosis, dry buccal mucosa NECK : Supple, no tenderness CHEST : CTA, no tenderness HEART : RRR, no obvious murmurs ABDOMEN: Some distention, nontender EXTREMITIES : Minimal LE swelling, no LE tenderness, no other conspicuous deformities noted NEUROLOGIC : Coherent, no facial asymmetry, no other gross focality Results & Data Results & Data Vital Signs (Past 12 Hours) Vital Signs Temp Pulse Resp BP Pulse Ox O2 Del Method 09/01/22 01:30 76 15 97 09/01/22 01:00 75 12 97 09/01/22 00:30 78 12 98 09/01/22 00:09 134/85 09/01/22 00:09 83 14 98 09/01/22 00:00 97 H 13 08/31/22 23:59 84 08/31/22 23:43 76 18 97 Room Air 08/31/22 23:34 36.5 C 100 H 18 144/90 H 99 Room Air Laboratory Results Laboratory Results WBC 7.47 K/ul (4.8-10.8) 08/31/22 23:54 RBC 5.39 M/uL (4.20-5.40) 08/31/22 23:54 Hgb 15.9 g/dl (12.0-16.0) 08/31/22 23:54 Hct 47.1 % (37.0-47.0) H 08/31/22 23:54 MCV 87.4 fL (80.0-100.0) 08/31/22 23:54 MCH 29.5 pg (25.0-34.0) 08/31/22 23:54 MCHC 33.8 g/dL (32.0-36.0) 08/31/22 23:54 RDW Std Deviation 42.1 fL (36.4-46.3) 08/31/22 23:54 RDW Coeff of Jorge Luis 13.2 % (11.5-14.5) 08/31/22 23:54 Plt Count 244 K/uL (130-400) 08/31/22 23:54 MPV 11.0 fL (9.4-12.4) 08/31/22 23:54 Immature Gran % (Auto) 0.4 % 08/31/22 23:54 Neut % (Auto) 67.6 % 08/31/22 23:54 Lymph % (Auto) 23.7 % 08/31/22 23:54 Cocke % (Auto) 7.0 % 08/31/22 23:54 Eos % (Auto) 0.8 % 08/31/22 23:54 Baso % (Auto) 0.5 % 08/31/22 23:54 Neut # (Auto) 5.05 K/uL (1.40-6.50) 08/31/22 23:54 Lymph # (Auto) 1.77 K/uL (1.2-3.4) 08/31/22 23:54 Cocke # (Auto) 0.52 K/uL (0.11-0.59) 08/31/22 23:54 Eos # (Auto) 0.06 K/uL (0-0.50) 08/31/22 23:54 Baso # (Auto) 0.04 K/uL (0-0.2) 08/31/22 23:54 Immature Gran # (Auto) 0.03 K/uL (0.01-0.20) 08/31/22 23:54 PT 10.6 Seconds (9.0-12.0) 08/31/22 23:54 INR 1.0 (0.9-1.1) 08/31/22 23:54 APTT 23.3 Seconds (21.0-31.0) 08/31/22 23:54 PTT Ratio 0.8 08/31/22 23:54 Sodium 137 mmol/L (136-145) 08/31/22 23:54 Potassium 5.1 mmol/L (3.5-5.1) 08/31/22 23:54 Chloride 105 mmol/L (98-107) 08/31/22 23:54 Carbon Dioxide 26 mmol/L (21-32) 08/31/22 23:54 Anion Gap 6 (3-11) 08/31/22 23:54 BUN 28 mg/dl (6-23) H 08/31/22 23:54 Creatinine 1.15 mg/dl (0.6-1.2) 08/31/22 23:54 Est Cr Clr Drug Dosing 38.9 ml/min 08/31/22 23:54 Est GFR ( Amer) 56.2 ml/min 08/31/22 23:54 Est GFR (Non-Af Amer) 48.5 ml/min 08/31/22 23:54 BUN/Creatinine Ratio 24.3 (10-20) H 08/31/22 23:54 Glucose 103 mg/dl (70-99(Fasting)) H 08/31/22 23:54 Calcium 9.1 mg/dl (8.6-10.3) 08/31/22 23:54 Magnesium 2.3 mg/dl (1.7-2.4) 08/31/22 23:54 Total Bilirubin 0.5 mg/dl (0.2-1.0) 08/31/22 23:54 AST 21 U/L (13-39) 08/31/22 23:54 ALT 14 U/L (7-52) 08/31/22 23:54 Alkaline Phosphatase 74 U/L (34-104) 08/31/22 23:54 Troponin I High Sens 5.3 pg/ml (0-14) 08/31/22 23:54 Total Protein 8.3 gm/dl (6.0-8.3) 08/31/22 23:54 Albumin 4.2 gm/dl (3.4-5.0) 08/31/22 23:54 Globulin 4.1 gm/dl (2.5-4.0) H 08/31/22 23:54 Albumin/Globulin Ratio 1.0 (0.9-2) 08/31/22 23:54 SARS-CoV-2, RNA, NAAT NEGATIVE (NEGATIVE) 09/01/22 01:30 Diagnostic Findings Chest x-ray as per my interpretation atelectasis, elevated right hemidiaphragm EKG as per my interpretation : Rate 90, NSR, LAD, LAFB, no ischemia
[2022-09-01] MEDS ORDERED: LEVOTHYROXINE SODIUM 75 MCG TABLET PO ONE (03:00)
[2022-09-01 03:04] LABS: D Dimer 1500 ug/L FEU (0-500)
[2022-09-01 03:43] LABS: Lyme Ab IgG w/WB Rflx Negative (Negative); Lyme Ab IgM w/WB Rflx Negative (Negative)
[2022-09-01] MEDS ORDERED: OPTIRAY 320 500ml IV ONE (04:45)
[2022-09-01] MEDS ORDERED: PROMETHAZINE HCL 6.25 MG in SODIUM CHLORIDE 0.9% 50 ML IV PRN (05:23)
[2022-09-01] MEDS ORDERED: oxyCODONE HCL IR 5 MG TAB (IMMEDIATE RELEASE) PO PRN (05:23)
[2022-09-01] MEDS ORDERED: POLYETHYLENE (MIRALAX) 17 GM PACK PO PRN (05:23)
[2022-09-01] MEDS ORDERED: FLUTICASONE PROPIONATE NA SPR 16 GM BTL PRN (05:23)
[2022-09-01] MEDS ORDERED: LORazepam 0.5 MG TAB PO PRN (05:23)
[2022-09-01] MEDS ORDERED: ACETAMINOPHEN 325 MG TAB PO PRN (05:23)
--- NOTE | 2022-09-01 06:57 | Magnetic Resonance Report ---
Brain MRA HISTORY: L numbness/paresthesia TECHNIQUE: 3-D [id number] MRA of the brain was performed without contrast. COMPARISON STUDY: Head CT 11/10/2018. FINDINGS: Visualized intracranial internal carotid arteries, distal vertebral arteries, and basilar a rtery are widely patent. There is no significant stenosis, occlusion, or aneurysm seen within the zachery ateral ACAs, MCAs, or ammonium hydroxide operator. IMPRESSION: No significant stenosis, occlusion, or aneurysm within the [place]. ACT 112: Negative or not required by law. Electronically signed by: Marcos Whitehead M.D. 09/01/2022 6:56 AM
--- NOTE | 2022-09-01 07:01 | Magnetic Resonance Report ---
Brain MRI WITHOUT CONTRAST HISTORY: L numbness/paresthesia TECHNIQUE: Multiplanar multisequence MRI of the brain was performed without the use of contrast. COMPARISON STUDY: Head CT 11/10/2018. FINDINGS: There are no areas of restricted diffusion to suggest acute infarction. The midline structu res are intact. The paranasal sinuses are clear. The mastoid air cells are clear. The ventricles and sulci are within normal limits for age. There is no mass, hematoma, midline shift. The major vascular flow-voids at the skull base are well maintained. A few scattered punctate foci of T2 hyperintensity seen within the periventricular white matter are nonspecific but favor mild microvascular ischemic c hange given the patient's age. IMPRESSION: No acute infarct or intracranial hemorrhage. ACT 112: Negative or not required by law. Electronically signed by: Marcos Whitehead M.D. 09/01/2022 6:59 AM
--- NOTE | 2022-09-01 07:15 | CT Scan Report ---
CHEST CTA for PULMONARY ARTERIES CT DOSE: 263.77 mGy.cm HISTORY: Atypical chest pain. TECHNIQUE: Multiaxial CT images of the chest were performed following the intravenous administration of contrast to evaluate the pulmonary arteries. Maximal intensity projection images were also obtaine d. A dose lowering technique was utilized adhering to the principles of ALARA. COMPARISON STUDY: Chest CT 11/30/2006. FINDINGS: Limited views of the upper abdomen demonstrate normal liver, spleen, and visualized adrenal glands. Normal esophagus. The heart is normal in size. No pleural or pericardial effusions. No media stinal or hilar lymphadenopathy. There is a mild pectus excavatum deformity. No acute fractures ident ified within the chest. The central airways are patent. No pneumothorax. Patchy densities within the lung bases favor dependent change. Otherwise, no focal lung consolidations to suggest a pneumonia. No evidence for pulmonary edema. The ascending thoracic aorta measures up to 3.7 cm in diameter. No maranda dence for an aortic dissection. No filling defects within the pulmonary arteries to suggest a pulmona ry embolus. IMPRESSION: 1. No evidence for a pulmonary embolus. 2. No focal lung consolidations to suggest pneumonia. 3. Mildly ectatic ascending thoracic aorta measuring up to 3.7 cm in diameter. No evidence for an aor tic dissection. ACT 112: Negative or not required by law. Electronically signed by: Marcos Whitehead M.D. 09/01/2022 7:13 AM
[2022-09-01] MEDS ORDERED: ASPIRIN 81 MG ECTAB PO SCH (07:30)
--- NOTE | 2022-09-01 07:56 | XRay Report ---
XR chest 1V portable HISTORY: Chest pain, nonspecific COMPARISON: Chest 09/01/2022. FINDINGS: Low lung volumes with mild dependent changes at the lung bases. The upper lung zones are cl ear. No pleural effusions. No pneumothorax. The heart is normal in size. Prior cholecystectomy. IMPRESSION: No acute process. ACT 112: Negative or not required by law. Electronically signed by: Marcos Whitehead M.D. 09/01/2022 7:55 AM
[2022-09-01] MEDS ORDERED: MoRPHine SULFATE CR 15 MG TABCR PO SCH (08:00)
[2022-09-01] MEDS ORDERED: ENOXAPARIN INJ 40 MG/0.4 ML SYR SQ SCH (09:00)
--- NOTE | 2022-09-01 09:50 | Cardiology Consultation ---
Date of Consultation September 01, 2022 Assessment & Plan (1) Atypical chest pain: (2) Left sided numbness: (3) Cervical disc disease: (4) Palpitations: (5) Hypercholesterolemia: Plan Mrs. Villafuerte presented to the hospital with worsening of atypical chest pain and left-sided numbness and tingling after experiencing increased anxiety symptoms. EKG without acute change. High-sensitivity troponin negative. Continuous telemetry monitoring without significant arrhythmia. Outpatient Lexiscan nuclear stress testing negative for ischemia in April 2022. Patient has and continues to decline recommendations including calcium channel radha, lipid- lowering therapy, and antiplatelet therapy Consider further evaluation of the cervical spine Consider treatment of anxiety. Refer for resting echocardiography Refer for bilateral carotid duplex Attempt to expedite ZIO results Supervising Physician Co-Signing Physician Notes 67-year-old female admitted with atypical chest discomfort. Patient describes chronic symptoms over several months. Denies exertional chest pain or unusual shortness of breath. No orthopnea, PND, or lower extremity edema. Denies palpitations, lightheadedness, dizziness, syncope, or near syncope. Telemetry reveals sinus rhythm. No sustained dysrhythmias. Cardiac enzymes within normal limits. PE: VSS. Gen: NAD, AAO x3. Heart: Regular rhythm, normal S1 and S2. No murmur, rub, gallop. Lungs: Clear bilateral, no rales, rhonchi, wheeze. Extremities: No edema. A/P: Agree with above PA-C history, physical exam, assessment and plan. No evidence of acute coronary syndrome. We will review resting 2D transthoracic echocardiogram when available. Routine carotid assessment as ordered. Continue current medications. Consider further evaluation of cervical spine and treatment of underlying anxiety. Patient may follow-up as scheduled with her outpatient fast brim pouncer. History of Present Illness Reason for Consultation: Chest pain Requesting Physician: Yee Attending Physician: Mata History of Present Illness Ms. Anahy Villafuerte is a 67-year-old female who is being seen today at the request of Dr. Fraire, evaluation of chest pain. Mrs. Villafuerte has been experiencing chest discomfort since at least February 2022. The discomfort is in the left upper chest. It is typically worse in the morning and improves throughout the day. The pain does not radiate. It is not aggravated by activity. In April 2022 she underwent pharmacological stress testing that was negative for ischemia. She notes numbness in the left arm and tingling down the left upper extremity into the fingers as well as tingling in the left leg and toes. The patient was referred and evaluated by Dr. Hampton on August 16, 2022 because of the chest discomfort and palpitations. A 14-day ZIO monitor was ordered. She has had constant pain throughout. Three to four days prior to mailing it back she read the instructions and realized that that it was not a li ve monitor recording and became really anxious, with worsening of the numbness in the left arm and tingling in the left side of the body leading to presentation to the ER. She notes that she stayed up all night long worrying. EKG on presentation revealed sinus rhythm with premature atrial complexes, left axis deviation, possible old anterior infarct. QTc 433 ms. High-sensitivity troponin I negative x2 at 5.3 and 4.3 despite days of constant chest pain. Elevated D-dimer led to CT scan of the chest showing no evidence of PE. No focal lung consolidations to suggest pneumonia observed. Continuous telemetry monitoring reveals sinus rhythm with sinus arrhythmia and occasional atrial ectopy. No significant arrhythmias. ZIO monitor mailed back on Sunday, August 30, 2022; results not available for review Additional notable recommendations by Dr. Sandoval included the addition of low- dose amlodipine for peripheral cyanosis as well as consideration for lipid- lowering therapy for the marked dyslipidemia. The patient has declined both of these recommendations. The patient, over the last month has been weaning off of Dexedrine which was felt to be contributing the ther peripheral vasospasm. She was previously taking 6 pills/day and as of yesterday was down to 1 pill/day. Today is the first day she is without said medication. She has a history of a bleeding ulcer and declines utilization of aspirin. Patient notes that the "purple toes "resolved with elevation of the lower extremities. She describes having a toy box dropped on her head at [employer] in the 1970s causing cervical disc issues. 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 In 01/2021 she was transitioned from Xyrem to Xywav due to lower extremity edema with improvement. She notes falling frequently due to cataplexy and narcolepsy. No overt exertional chest pain. No unusual shortness of breath. No orthopnea or PND. No dizziness or syncope. No current fevers or chills. No melena or hematochezia. No headache. Allergies Allergy/AdvReac Type Severity Reaction Status Date / Time clindamycin Allergy Severe BLISTERS Verified 09/01/22 00:11 IN MOUTH, THROAT CLOSED NSAIDS (Non-Steroidal Allergy Severe TROUBLE Verified 09/01/22 00:11 Anti-Inflamma BREATHING, MOUTH SWELLING Penicillins Allergy Severe HIVES, Verified 09/01/22 00:11 TONGUE SWELLS, BLISTERS ON TONGUE & VAGINA Sulfa (Sulfonamide Allergy Severe HIVES, Verified 09/01/22 00:11 Antibiotics) TONGUE SWELLS, BLISTERS ON TONGUE & VAGINA Cipro Allergy Intermediate MUSCLE Verified 03/18/15 22:22 PROBLEMS, MOUTH SORES ciprofloxacin Allergy Intermediate MUSCLE Verified 09/01/22 00:11 PROBLEMS, MOUTH SORES doxycycline Allergy Intermediate Vomiting Verified 09/01/22 00:11 levofloxacin Allergy Intermediate MUSCLE Verified 09/01/22 00:11 PROBLEMS aspirin Allergy Unknown HX OF Verified 09/01/22 00:11 BLEEDING ULCERS Home Medications Medication Instructions Recorded Confirmed Type fluticasone propionate 50 1 spray intranasal DAILY PRN as 11/10/18 09/01/22 History mcg/actuation nasal directed spray,suspension (Flonase Allergy Relief) ipratropium bromide 21 mcg (0.03 2 spray intranasal DAILY PRN as 11/10/18 09/01/22 History %) nasal spray directed ketoconazole 2 % shampoo 2 % topical .EVERY 3 DAYS 11/10/18 09/01/22 History ketoconazole 2 % topical cream 1 applic topical DAILY 11/10/18 09/01/22 History morphine 15 mg tablet,extended 15 mg PO BID 11/10/18 09/01/22 History release olopatadine 0.2 % eye drops 1 drp OPB DAILY PRN NEEDED 11/10/18 09/01/22 History polyethylene glycol 3350 17 17 g PO DAILY PRN Constipation 11/10/18 09/01/22 History gram/dose oral powder (Miralax) estradiol 0.0375 mg/24 hr 1 patch transdermal 2XWK #24 ea 08/15/22 08/31/22 Rx semiweekly transdermal patch amlodipine 2.5 mg tablet 2.5 mg PO QAM 08/31/22 08/31/22 History levothyroxine 75 mcg tablet 75 mcg PO HS 08/31/22 09/01/22 History clobetasol 0.05 % scalp solution 1 applic topical HS PRN scalp 09/01/22 09/01/22 History scaling and itching estradiol 0.0375 mg/24 hr 1 patch transdermal 2XWK 09/01/22 09/01/22 History semiweekly transdermal patch Patient History Medical History Congestive heart failure (CHF) Hypercholesterolemia Hypothyroidism Menopause Monoclonal gammopathy of undetermined significance Multiple myeloma Narcolepsy Osteoporosis Postmenopausal hormone replacement therapy Surgical History H/O abdominoplasty H/O dilation and curettage x5 H/O laparoscopy one with removal of right tube and ovary H/O: hysterectomy left tube and ovary , adhesiolysis, age 33, endometriosis History of tonsillectomy and adenoidectomy Hx of appendectomy Family History Father Myocardial infarction Grandmother (Paternal) Ovarian cancer Denies family history of Prostate cancer Breast cancer Colorectal cancer Social History Smoking Status: Never smoker Second Hand Exposure: No; Do You Dip or Chew Tobacco: No; Tobacco Cessation Education Requested by Patient: No Hx Alcohol Use: No Hx Substance Use: No Preferred Language: Cambodian Communication Ability: Effective Operation Agent Required: No Beliefs That Will Affect Care: None Current Living Situation: Spouse Other Information That Helps Us Care for You: No Feels Safe at Home: Yes Safety Concerns: Feels Safe At This Time Assistive Devices: Cane, Glasses, Walker and Wheelchair Review of Systems Review of Systems: Complete review of systems is otherwise as stated above, negative, noncontributory. Physical Exam Physical Exam: General: A&Ox3. NAD. HENT: Normocephalic. Atraumatic. Eyes: PER. Conjunctiva pink, sclera clear. Neck: No JVD. No HJR. No carotid bruits Heart: RRR. No murmur. No rub. No gallop. Lungs: Clear to auscultation. Abdomen: +BS. Soft. Nontender. No masses or organomegaly. Extremities: No clubbing, cyanosis, or edema. Limited neurological examination is without focal deficits. Pulses: radial=2/4, posterior tibial=2/4. Results & Data Vital Signs (Past 12 Hours) Vital Signs Temp Pulse Pulse Resp BP BP Pulse Ox 09/01/22 06:00 65 09/01/22 07:26 36.6 C 68 20 107/62 97 09/01/22 05:04 76 09/01/22 05:30 09/01/22 05:23 36.5 C 96 H 17 146/87 H 99 09/01/22 05:23 09/01/22 05:23 36.5 C 96 H 17 146/87 H 99 09/01/22 03:00 79 16 99 09/01/22 02:30 78 12 97 09/01/22 02:00 87 18 98 09/01/22 01:30 76 15 97 09/01/22 01:00 75 12 97 09/01/22 00:30 78 12 98 09/01/22 00:09 134/85 09/01/22 00:09 83 14 98 09/01/22 00:00 97 H 13 08/31/22 23:59 84 08/31/22 23:43 76 18 97 08/31/22 23:34 36.5 C 100 H 18 144/90 H 99 Pulse Ox O2 Del Method O2 Del Method 09/01/22 06:00 09/01/22 07:26 Room Air 09/01/22 05:04 09/01/22 05:30 Room Air 09/01/22 05:23 09/01/22 05:23 99 Room Air 09/01/22 05:23 Room Air 09/01/22 03:00 09/01/22 02:30 09/01/22 02:00 09/01/22 01:30 09/01/22 01:00 09/01/22 00:30 09/01/22 00:09 09/01/22 00:09 09/01/22 00:00 08/31/22 23:59 08/31/22 23:43 Room Air 08/31/22 23:34 Room Air Laboratory Results Cardiac Enzymes 08/31/22 09/01/22 Range/Units 23:54 02:49 AST 21 (13-39) U/L Troponin I High Sens 5.3 4.3 (0-14) pg/ml Coagulation 08/31/22 Range/Units 23:54 PT 10.6 (9.0-12.0) Seconds APTT 23.3 (21.0-31.0) Seconds CBC 08/31/22 Range/Units 23:54 WBC 7.47 (4.8-10.8) K/ul RBC 5.39 (4.20-5.40) M/uL Hgb 15.9 (12.0-16.0) g/dl Hct 47.1 H (37.0-47.0) % Plt Count 244 (130-400) K/uL Neut # (Auto) 5.05 (1.40-6.50) K/uL Lymph # (Auto) 1.77 (1.2-3.4) K/uL Nelson # (Auto) 0.52 (0.11-0.59) K/uL Eos # (Auto) 0.06 (0-0.50) K/uL Baso # (Auto) 0.04 (0-0.2) K/uL Comprehensive Metabolic Panel 08/31/22 Range/Units 23:54 Sodium 137 (136-145) mmol/L Potassium 5.1 (3.5-5.1) mmol/L Chloride 105 (98-107) mmol/L Carbon Dioxide 26 (21-32) mmol/L BUN 28 H (6-23) mg/dl Creatinine 1.15 (0.6-1.2) mg/dl Glucose 103 H (70-99(Fasting)) mg/dl Calcium 9.1 (8.6-10.3) mg/dl AST 21 (13-39) U/L ALT 14 (7-52) U/L Alkaline Phosphatase 74 (34-104) U/L Total Protein 8.3 (6.0-8.3) gm/dl Albumin 4.2 (3.4-5.0) gm/dl Intake and Output 08/31/22 09/01/22 09/01/22 22:59 06:59 14:59 Output Total 150 / 150 Balance -150 / -150 Output: Urine 150 / 150 Other: Weight 61.8 kg Weight Measurement Method Built in [facility] Diagnostic Findings August 2021 NELSON: NELSON at rest is 1.0 on the right and 1.1 on the left. For the right lower extremity: Abnormal PPGs of the foot that slightly improve with warm water immersion and normal large vessel arterial flow to the ankle level suggest vasospastic disorder. For the left lower extremity: Abnormal PPGs of the foot that slightly improve with warm water immersion and normal large vessel arterial flow to the ankle level suggest vasospastic disorder. May 04, 2022 Lexiscan Interpretation Summary (as per Dr. Aldrich): Lexiscan nuclear stress test negative for ischemia or scar. Gated SPECT images reveals normal myocardial thickening and wall motion. The LV ejection fraction is calculated at >70%. Brain MRI this admission showed no acute infarct or intracranial hemorrhage. Had MRI showed no significant stenosis, occlusion, or aneurysm within the [place].
--- NOTE | 2022-09-01 13:49 | Ultrasound Report ---
ULTRASOUND OF THE CAROTID ARTERIES CLINICAL HISTORY: Left-sided numbness. COMPARISON STUDY: No priors. TECHNIQUE: Real-time, grayscale, and color Doppler sonography of the carotid arteries is performed. I mages are reviewed in the transverse and longitudinal planes. FINDINGS: The carotid arteries are patent bilaterally and demonstrate antegrade flow. There is no significant a therosclerotic plaque identified. Normal doppler arterial waveforms are seen throughout. Velocity carina surements are listed below. Common carotid peak systolic velocity (cm/sec): RIGHT: 82 LEFT: 81 ICA proximal peak systolic velocity (cm/sec): RIGHT: 60 LEFT: 63 ICA mid peak systolic velocity (cm/sec): RIGHT: 69 LEFT: 72 ICA distal peak systolic velocity (cm/sec): RIGHT: 76 LEFT: 62 ICA/CC peak systolic ratio: RIGHT: 0.9 LEFT: 0.9 Antegrade flow was shown in the vertebral arteries. The external carotid arteries are patent. IMPRESSION: 1. There is no sonographic evidence of hemodynamically significant stenosis in the right or left [place] arterial system. 2. Antegrade flow is shown in the vertebral arteries. ACT 112: Negative or not required by law. Electronically signed by: Caden Skelton M.D. 09/01/2022 1:47 PM
--- NOTE | 2022-09-01 16:19 | Discharge Summary ---
Discharge Summary Date of Service September 01, 2022 Notes For Next Care Provider Medication Changes From Visit no changes Admission HPI Per Admitting Provider History obtained from patient, family, and records. Medical history significant for CVA, hyperlipidemia, vasospastic disorder as per records, narcolepsy/cataplexy currently on Xywav, chronic pain on narcotics, hypothyroidism, MGUS, history of Lyme disease status post Rx. 4 months ago, patient noted intermittent left-sided chest pain occurring about 3 times a week without other symptoms. A month later, chest pain symptoms accompanied by palpitations, paresthesias and numbness of the left upper extremity and left lower leg with episodic blue discoloration of the toes. No actual extremity pain. No headache or neck complaints. Patient seen by [facility] windows server engineer 2 weeks ago for evaluation of symptoms. Consideration for vasospastic disorder given abnormal photoplethysmography values noted both lower extremities from prior vascular lab study. Low-dose amlodipine and possible vascular surgery evaluation contemplated for vasospastic disorder pending discussion with PCP as per outpatient documentation. 2-week Zio patch for palpitations. Outpatient MRI of the brain recommended for evaluation of strokelike symptoms. 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 Patient preferred to trial off Dexedrine then to start amlodipine Rx. Improved vasospasm noted with patient's Dexedrine taper. Narcolepsy/catalepsy however worse as per patient. This week, patient noted increased frequency of left-sided chest pain associated with left-sided palpitations/numbness. No shortness of breath, no headaches. Patient brought to ER for evaluation. Patient currently comfortable. Medical History as above Outpatient fasting lipid panel (08/2022) Serum triglycerides 147 Total cholesterol 263 HDL cholesterol 59 LDL cholesterol 175 Surgical History : section, cholecystectomy, appendectomy, blepharoplasty, abdominoplasty, MIRTHA, breast biopsy, section Family History : Mouth cancer, DM, heart disease, lung cancer, uterine cancer Personal/Social history : Non-smoker, no EtOH intake, disabled Principal Dx & Hospital Course #1 = Principal Diagnosis (1) Chest pain: (2) Left sided numbness: Plan 67 yo F presented with acute worsening of atypical chests pain and left sided numbness and tingling after experiencing increased anxiety symptoms. Work included highly sensitive troponin which was negative and an EKG without acute change or sign of acute ischemia. Continuous telemetry monitoring revealed no significant arrythmia. Outpatient Lexiscan nuclear stress test in Apr 2022 was negative for ischemia. Cardiology was consulted for her chest pain and reports that she continues to decline recommendations including calcium channels blockers, lipid lowereing therapy and antiplatelet therapy. No evidence for ACS. Echo reviewed and revealed EF 60-65% with grade I diastolic dysfunction. Additional workup included brain MRI with no acute infarct or intracranial hemorrhage, CXR with no acute process, a head MRA with no significant stenosis, occlusion, or aneurysm within the [place] and a carotid doppler revealing no sonographic evidence of hemodynamically significant stenosis in the right or left carotid arterial system and antegrade flow in the vertebral arteries. CT chest with contrast was negative for acute VTE. She will work with her sleep provider for an alternative to Dexedrine. At time of discharge her symptoms were resolved, and she reported feeling better knowing the workup was negative. She was discharged in stable condition with close primary care follow-up scheduled. Discharge Exam Mentating and ambulating at baseline and oxygenating well on room air. Sensation intact throughout and no gross focal neurologic deficits. Hemodynamically stable and afebrile. Oriented Updated Medication List Medication Instructions Recorded Confirmed Type fluticasone propionate 50 1 spray intranasal DAILY PRN as 11/10/18 09/01/22 History mcg/actuation nasal directed spray,suspension (Flonase Allergy Relief) ipratropium bromide 21 mcg (0.03 2 spray intranasal DAILY PRN as 11/10/18 09/01/22 History %) nasal spray directed ketoconazole 2 % shampoo 2 % topical .EVERY 3 DAYS 11/10/18 09/01/22 History ketoconazole 2 % topical cream 1 applic topical DAILY 11/10/18 09/01/22 History morphine 15 mg tablet,extended 15 mg PO BID 11/10/18 09/01/22 History release olopatadine 0.2 % eye drops 1 drp OPB DAILY PRN NEEDED 11/10/18 09/01/22 History polyethylene glycol 3350 17 17 g PO DAILY PRN Constipation 11/10/18 09/01/22 History gram/dose oral powder (Miralax) estradiol 0.0375 mg/24 hr 1 patch transdermal 2XWK #24 ea 08/15/22 08/31/22 Rx semiweekly transdermal patch amlodipine 2.5 mg tablet 2.5 mg PO QAM 08/31/22 08/31/22 History levothyroxine 75 mcg tablet 75 mcg PO HS 08/31/22 09/01/22 History clobetasol 0.05 % scalp solution 1 applic topical HS PRN scalp 09/01/22 09/01/22 History scaling and itching estradiol 0.0375 mg/24 hr 1 patch transdermal 2XWK 09/01/22 09/01/22 History semiweekly transdermal patch Hospital Stay Data Consultations 09/01/22 01:24 ED Decision to Admit Stat 09/01/22 07:27 Consult Cardiology Routine Diagnostic Imagining Performed 09/01/22 02:14 MRI Angio Head [MR angio head wo con] Stat MRI Brain [MR brain wo con] Stat 09/01/22 03:04 CT angio chest PE protocol Stat 09/01/22 10:24 Carotid duplex [US carotid doppler BI] Routine Pending Results Patient Have Any Pending Studies at Discharge: No Discharge Instructions Given to Patient (Per Discharging Provider) Please take all medications as instructed on discharge list below. You were not found to have evidence of any acute heart attack or stroke and blood clot was ruled out by CT scan. You will likely have an improvement in symptoms by staying off the dexedrine, and will need to followup with your sleep physician to assess how things are going. Please follow-up with Dr. Jaquez as scheduled for next week which will be a touch base to see how things are going since returning home. At this visit it will be important to discuss if further workup for your cervical and lumbar disc herniations are relevant. It was a pleasure taking care of you! Please call if you have any questions or problems. You can reach a [facility] hospitalist on duty at [facility] 24 hours a day by calling [phone]. Take care of yourself. Cara August, [facility] Regional Medical Centerist Total Time Total Time Spent Total Time Spent (In Minutes): 60
--- NOTE | 2022-09-01 18:05 | Electrocardiogram Report ---
Test Reason : Blood Pressure : / mmHG Vent. Rate : 088 BPM Atrial Rate : 088 BPM P-R Int : 142 ms QRS Dur : 070 ms QT Int : 358 ms P-R-T Axes : -19 -42 042 degrees QTc Int : 433 ms Sinus rhythm with Premature atrial complexes Left axis deviation Anterior infarct (cited on or before 19-SEP-2017) Abnormal ECG When compared with ECG of 19-SEP-2017 23:14, Premature atrial complexes are now Present Borderline criteria for Inferior infarct are no longer Present Confirmed by Gregory Avila ([id number]) on 09/01/2022 6:04:47 PM Referred By: REFERRED SELF Confirmed By:Og Avila
[2022-09-01] MEDS ORDERED: LEVOTHYROXINE SODIUM 75 MCG TABLET PO SCH (21:00)
--- NOTE | 2022-09-19 09:49 | Coding Query ---
A supporting diagnosis is required for the test/procedure performed on this patient in order for us to be reimbursed by the patient's insurance. Please provide a supporting diagnosis for the following test/procedure listed below next to the test name along with your signature. *If there is no additional diagnosis for this patient that would support the following test/procedure please document that below next to the test/procedure. Test(s)/Procedure(s) that require a supporting diagnosis: * [id number] MR ANGIO HEAD DIAGNOSIS: TIA DATE OF SERVICE: 09/01/22 Provider Signature: JNO Date: 09/20/22_ Thank you Damien Benites [facility] Information Management Once completed, please kindly fax back to [phone] For questions please call [phone] [facility]
--- NOTE | 2022-09-19 09:54 | Coding Query ---
A supporting diagnosis is required for the test/procedure performed on this patient in order for us to be reimbursed by the patient's insurance. Please provide a supporting diagnosis for the following test/procedure listed below next to the test name along with your signature. *If there is no additional diagnosis for this patient that would support the following test/procedure please document that below next to the test/procedure. Test(s)/Procedure(s) that require a supporting diagnosis: * [id number] CAROTID DOPPLER DIAGNOSIS: Left sided weakness ? TIA DATE OF SERVICE: 09/01/22 Provider Signature: Date: Thank you Damien Benites [facility] Information Management Once completed, please kindly fax back to [phone] For questions please call [phone] [facility]
== END 2022-09-01 17:00 | disposition home or self-care (01) ==
LOC: 2E 23:29 → ED 23:29 → 2E 09-01 05:01